=== PATIENT | female | born 1995 | race Caucasian/White ===

== ENCOUNTER 2017-08-11 14:48 | Emergency (ER) | payer BC ==
[2017-08-11 15:33] VITALS: BP 114/76; PULSE 84; TEMP 99; O2SAT 99
--- NOTE | 2017-08-11 17:34 | C.PDOC ---
Time Seen by Provider: 08/11/17 15:58 Chief Complaint (Nursing): Flu-like Symptoms History Per: Patient, Family Onset/Duration Of Symptoms: Hrs Current Symptoms Are (Timing): Still Present Associated Symptoms: Sore Throat, Cough, Nasal Congestion, Nausea, Vomiting Severity: Moderate Additional History Per: Prior Records Past Medical History Reviewed: Historical Data, Nursing Documentation, Vital Signs Vital Signs: Last Vital Signs Temp 99 F 08/11/17 15:27 Pulse 84 08/11/17 15:27 Resp 18 08/11/17 15:27 BP 114/76 08/11/17 15:27 Pulse Ox 99 08/11/17 15:27 - Medical History PMH: No Chronic Diseases Surgical History: No Surg Hx Family History: States: Unknown Family Hx - Social History Hx Alcohol Use: No Hx Substance Use: No - Immunization History Hx Tetanus Toxoid Vaccination: No Hx Influenza Vaccination: No Hx Pneumococcal Vaccination: No Review Of Systems Except As Marked, All Systems Reviewed And Found Negative. Constitutional: Negative for: Weakness ENT: Positive for: Nose Congestion, Throat Pain Cardiovascular: Negative for: Chest Pain Respiratory: Positive for: Cough. Negative for: Shortness of Breath, Hemoptysis Gastrointestinal: Positive for: Nausea, Vomiting, Abdominal Pain. Negative for : Diarrhea, Melena, Hematochezia, Hematemesis Genitourinary: Negative for: Dysuria Musculoskeletal: Negative for: Back Pain Skin: Negative for: Rash Neurological: Positive for: Headache. Negative for: Weakness, Numbness, Seizures, Altered Mental Status Physical Exam - Physical Exam Appears: Non-toxic, No Acute Distress Skin: Normal Color, Warm, Dry, No Rash Head: Atraumatic, Normacephalic Eye(s): bilateral: PERRL, EOMI Oral Mucosa: Moist, No Trismus Throat: Normal Neck: Normal ROM, Supple Lymphatic: No Adenopathy Cardiovascular: Rhythm Regular Respiratory: Normal Breath Sounds, No Accessory Muscle Use, No Stridor Gastrointestinal/Abdominal: Soft, No Tenderness Back: No CVA Tenderness Extremity: Normal ROM Neurological/Psych: Oriented x3, Normal Motor, Normal Sensation ED Course And Treatment O2 Sat by Pulse Oximetry: 99 Pulse Ox Interpretation: Normal Progress Note: Pt feels better and tolerating PO in the ED after IM Toradol. Reassessment Condition: Improved Progress - Medications Administered Oral: Antiemetic, H-2 prateek - Data Reviewed Data Reviewed: Lab, Old records - Patient Status Patient status: Mostly improved - Continuity of Care Discussed patient case with:: Patient, Family-HIPPA compliant, ED Nurse - Patient Plan Patient Plan: Discharge, F/U with PCP Disposition Counseled Patient/Family Regarding: Studies Performed, Diagnosis, Need For Followup, Rx Given - Disposition Referrals: [facility] [Outside] Disposition: HOME/ ROUTINE Disposition Time: 17:34 Condition: IMPROVED Additional Instructions: Drink plenty of fluids. Follow up with your doctor or in the clinic. Return to the ER if you develop high fever, trouble breathing or swallowing, worsening of symptoms or if you have any other concerns. Prescriptions: Ibuprofen [Motrin Tab] 600 mg PO Q8 PRN #15 tab PRN Reason: Pain, Moderate (4-7) Instructions: Pharyngitis (ED) - Clinical Impression Clinical Impression: Nausea & vomiting, Sore throat
[2017-08-11 17:53] VITALS: RESP 16
== END 2017-08-11 17:53 | disposition home or self-care (01) ==
LOC: C.ER 14:48 → EDBD 14:48 → C.ER 17:53
DX: J02.9 Acute pharyngitis, unspecified (principal); R11.2 Nausea with vomiting, unspecified
CPT/HCPCS: 87070; 87430; 87804; 96372; 99285; J1885